=== PATIENT | male | born 1995 | race Caucasian/White ===

== ENCOUNTER 2020-07-28 13:19 | Outpatient (CLI) | payer OTHER | END 2020-07-28 13:20 | disposition home or self-care (01) | LOC: BICMRI 13:19 | PROVIDERS: ATTEND Neurological Surgery | DX: M54.2 Cervicalgia (principal); M54.6 Pain in thoracic spine; M47.812 Spondylosis without myelopathy or radiculopathy, cervical region; M53.84 Other specified dorsopathies, thoracic region; M43.8X4 Other specified deforming dorsopathies, thoracic region | CPT/HCPCS: 72040; 72141; 72146 ==

== ENCOUNTER 2024-02-26 10:33 | Outpatient (CLI) | payer OTHER ==
[2024-02-26 11:28] LABS: #Basophils 0.03 10x3/uL (0.0-0.2); %Basophils 0.8 % (0.0-1.0); %Eosinophils 1.9 % (0.0-10.0); %Lymphocytes 37.9 % (21.0-51.0); %Monocytes 8.8 % (0.0-10.0); %Neutrophils 50.6 % (42.0-75.0); Hematocrit 43.2 % (42.0-52.0); Mean Corpuscular HGB CONC 34.7 g/dL (32.0-36.0); Mean Corpuscular Hemoglobin 29.8 pg (27.0-31.0); Mean Corpuscular Volume 85.9 fL (78.0-98.0); Mean Platelet Volume 10.4 fL (7.4-10.4); Platelet Count 215 10x3/uL (130-400); RBC Distribution Width 11.9 % (11.5-14.5); Red Blood Cell (RBC) Count 5.03 mill/uL (4.70-6.10)
[2024-02-26 11:48] LABS: Anion Gap 14 mmol/L (10-20); BUN (Urea Nitrogen) 14 mg/dL (8.9-20.6); Calc. Creatinine Clearance 0 mL/min (70-130); Calcium 9.4 mg/dL (7.8-10.44); Carbon Dioxide 25 mmol/L (22-29); Chloride 105 mmol/L (98-107); Estimated GFR 87; Glucose 93 mg/dL (70-105); Sodium 140 mmol/L (136-145)
== END 2024-02-26 10:34 | disposition home or self-care (01) ==
LOC: LABBT 10:33
PROVIDERS: ATTEND Orthopaedic Surgery
DX: Z01.812 Encounter for preprocedural laboratory examination (principal); S43.432A Superior glenoid labrum lesion of left shoulder, initial encounter
CPT/HCPCS: 80048; 85025

== ENCOUNTER 2024-02-28 05:52 | Day surgery (SDC) | payer OTHER ==
[2024-02-26 11:01] VITALS: BMI 24.4
[2024-02-28] MEDS ORDERED: EPINEPHrine 1 MG/ML VIAL ONE (06:34)
[2024-02-28] MEDS ORDERED: Lidocaine 1% (PF) 30 ML VIAL ONE ×2 (06:34→06:39)
[2024-02-28] MEDS ORDERED: fentaNYL 50 mcg/mL 1 mL Vial ONE (06:39)
[2024-02-28] MEDS ORDERED: Midazolam HCl 2 mg/2 ml Vial ONE (06:39)
[2024-02-28] MEDS ORDERED: Ropivacaine 0.5% HCl/PF (150 MG/30 ML VIAL) ONE (06:40)
[2024-02-28] MEDS ORDERED: Ropivacaine 0.2% HCl/PF 20 ML ONE (06:40)
[2024-02-28] MEDS ORDERED: PROPOFOL 20 ML ONE (07:17)
[2024-02-28] MEDS ORDERED: Rocuronium Bromide 10 MG/ML (10ML VIAL) ONE (07:17)
[2024-02-28] MEDS ORDERED: CEFAZOLIN 2 GM VIAL ONE (07:22)
[2024-02-28] MEDS ORDERED: HYDROcodone/Acetaminophen 10/325 mg Tablet PO PRN ×2 (07:30)
[2024-02-28] MEDS ORDERED: Ondansetron PF 4 MG/2 ML Vial IVP PRN (07:30)
[2024-02-28] MEDS ORDERED: Ropivacaine 0.2% 550 ML 550 ML NERVE BLCK SCH (07:30)
[2024-02-28] MEDS ORDERED: Zolpidem Tartrate 5 MG TAB PO PRN (07:30)
[2024-02-28] MEDS ORDERED: traMADol HCl 50 MG TAB PO PRN ×2 (07:30)
[2024-02-28] MEDS ORDERED: Promethazine HCl 25 MG/ML VIAL IM PRN (07:30)
[2024-02-28] MEDS ORDERED: Ondansetron PF 4 MG/2 ML Vial ONE (08:36)
[2024-02-28] MEDS ORDERED: Dexamethasone 4 mg/ml Vial ONE (08:36)
[2024-02-28] MEDS ORDERED: Dexmedetomidine 200 MCG/2 ML VIAL ONE (08:38)
[2024-02-28] MEDS ORDERED: SUGAMMADEX SODIUM 200 MG/2 ML VIAL ONE (08:41)
[2024-02-28] MEDS ORDERED: Ketorolac Tromethamine 30 MG (1 mL) VIAL IVP SCH (12:00)
== END 2024-02-28 11:38 | disposition home or self-care (01) ==
LOC: SDC 05:52
PROVIDERS: ATTEND Orthopaedic Surgery
PROC: 0RCK4ZZ Extirpation of Matter from Left Shoulder Joint, Percutaneous Endoscopic Approach (ICD-10-PCS; principal; 2024-02-28)
PROC: 0LM24ZZ Reattachment of Left Shoulder Tendon, Percutaneous Endoscopic Approach (ICD-10-PCS; principal; 2024-02-28)
PROC: 3E0T3BZ Introduction of Anesthetic Agent into Peripheral Nerves and Plexi, Percutaneous Approach (ICD-10-PCS; principal; 2024-02-28)
PROC: 0LS30ZZ Reposition Right Upper Arm Tendon, Open Approach (ICD-10-PCS; principal; 2024-02-28)
PROC: 0PT Upper Bones, Resection (ICD-10-PCS; principal; 2024-02-28)
DX: S43.432A Superior glenoid labrum lesion of left shoulder, initial encounter (principal); M19.112 Post-traumatic osteoarthritis, left shoulder; X58.XXXA Exposure to other specified factors, initial encounter
CPT/HCPCS: A4306; C1713; J0171; J1100; J2250; J2405; J2704; J2795; J3010